=== PATIENT | female | born 1935 | race Caucasian/White ===

== ENCOUNTER 2016-10-10 11:13 | Observation (INO) | payer MEDICARE ==
[~2016-10-10] VITALS: Ht 142.2 cm; Wt 42.7 kg
[~2016-10-10 11:13] MED LIST: ACET-2766 PO; AMIO200T PO; CHOL10008 PO; CIPR-231 PO; HYDR-4003 PO; HYDR25TA4 PO; LEVO50TA6 PO; WARF1TAB6 PO
[2016-10-10 11:24] VITALS: BP 180/86; PULSE 81; RESP 20; O2SAT 98
--- NOTE | 2016-10-10 11:27 | ED.REPORT ---
HPI-Extremity Problem Lower Date of Service Oct 10, 2016 ED Provider: Samuel Roy MD 81 year old female with a recent admission June 29 through July 07 for a left hip fracture surgical repair by Dr. Whitney, who presents to the ED via EMS due to acute L hip pain that has been worsening over the last 2 days. Pt denies any new fall or injury. Today the patient's leg "gave out", and her remote encoding center manager was able to catch her so she didn't fall. In the last 2 days she has been able to walk with her walker with pain. She only has pain with movement of the leg. She denies any other pain or injury. Pain is minimally relieved with Tylenol. Pt denies fever, numbness, tingling and any acute change in edema. Her last PO was 0800. Pt is on Coumadin for Afib. Nursing Notes Stated Complaint: LEFT LEG PAIN Chief Complaint: Extremity Trauma Nursing Notes Reviewed: Yes (Productify, meds not reconciled, on warfarin) Allergies: Coded Allergies: diltiazem (Verified Allergy, Intermediate, Rash, 06/29/16) furosemide (Verified Allergy, Mild, Rash, 10/10/16) Contrast Media (Verified Allergy, Unknown, Hives, 10/10/16) Scheduled Amiodarone (Amiodarone) 200 Mg Tablet 200 MG PO QAM Ascorbic Acid (Vitamin C) 100 Mg Tablet Unknown Dose PO DAILY Cholecalciferol (Vitamin D3) (Vitamin D3) 1,000 Unit Tab.chew 1,000 UNIT PO DAILY Hydrochlorothiazide (Hydrochlorothiazide) 25 Mg Tablet 25 MG PO QAM Levothyroxine (Levothyroxine) 75 Mcg Tablet 75 MCG PO DAILY Warfarin Sodium (Warfarin Sodium) 1 Mg Tablet 1.5 MG PO ,Mon,,Sat,Philip Warfarin Sodium (Warfarin Sodium) 1 Mg Tablet 1 MG PO Mon,Fri Scheduled PRN Acetaminophen (Tylenol Arthritis) 650 Mg Tablet.er 650 MG PO HS PRN PRN For Pain General Time Seen by MD: 11:24 Chief Complaint Other (L leg pain) Hx Obtained From: Patient, EMS Arrived By: Ambulance Onset Occurred: 2 days ago Symptom Duration: Since onset Location: : Leg left Quality: Painful Severity: Current: No pain currently Severity: Maximum: Moderate Associated with: Denies: Fever, Unable to walk Exacerbated by: Movement Recent Healthcare: Recent doctor visit, Previous surgery Similar Sx Previous: Yes Past Medical History 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 Linares Primary: Dr. Dos Santos Admit June 29 through July 07 for a left fracture surgical repair by Dr. Whitney, as well as campylobacter diarrhea Past Medical History Hx of endometrial cancer History of a flutter/fibrillation on warfarin History of patent ductus arteriosus with severe heart murmur Reports: Congestive heart failure, Hypertension Reports: Atrial fibrillation Past Surgical History L hip intramedullary nailing 07/02/[address] Whitney Reports: Appendectomy, Hysterectomy Reports: Knee replacement Family History Noncontributory Smoking History Never Smoker Social History Alcohol Use: 1-3 per day Drug Use: Denies drug use Other Social History: Local resident Ambulatory Status Independent Review of Systems Basic Review of Systems Eyes: Vision NL ENT: Hearing NL Respiratory: No shortness of breath Cardiovascular: No chest pain GI: No abdominal pain Psychiatric: Normal thought content Constitutional: Denies: Chills, Fever Musculoskeletal: Reports: Extremity pain, Extremity swelling (chronic lower extremity edema) Skin: Denies Diaphoresis, Denies Rash Neurologic: Denies: Numbness, Weakness Complete sys rev & neg: except as marked. Physical Exam Initial Vital Signs Vital Signs (First) Date Time Temp Pulse Resp B/P Pulse Ox O2 Delivery O2 Flow Rate FiO2 10/10/16 11:24 36.4 81 20 180/86 98 Room Air Initial VS: Reviewed, Vital signs normal General/Constitutional: Well-developed (No visible signs of trauma), Well- nourished Head / Eyes: Atraumatic (No signs of trauma), Normocephalic, PERRL ENT: Conjunctiva normal, No scleral icterus Neck: Supple, Full range of motion Respiratory: Breath sounds normal, Clear to auscultation, No respiratory distress Abdomen / GI: Soft, Non-tender Skin: Warm, Dry, No cyanosis Neurologic: Alert, Oriented, Nonfocal Psychiatric: Behavior normal, Normal thought content Lower Extremity / Pelvis / MS: Neurologic intact, Vascular intact Pain with gentle internal, external rotation. +2 swelling and edema to bilat legs which she reports has been there for 30 years. N/ plantarflexion and dorsiflexion. No deformity or effusion of knee, I suspect the hip is the source. No tension in calf. Nl pulses. Heart Sounds / Murmur: Positive: Murmur present... (I/) Interpretation & Diagnostics Lab Results Interpretation Result Diagram: 10/10/16 1219 10/10/16 1219 Test 10/10/16 12:19 White Blood Count 6.8th/mm3 (3.8-10.1) Red Blood Count 3.47mil/mm3 (3.90-5.20) Hemoglobin 10.9g/dL (12.0-15.6) Hematocrit 33.8% (35.0-46.0) Mean Corpuscular Volume 97.4fL (81-100) Mean Corpuscular Hemoglobin 31.4pg (27.0-35.0) Mean Corpuscular Hemoglobin Concent 32.2% (32.0-37.0) Red Cell Distribution Width 12.1% (12.3-15.4) Platelet Count 205bil/L (150-400) Neutrophils (%) (Auto) 79.0% (40-74) Lymphocytes (%) (Auto) 9.0% (14-46) Monocytes (%) (Auto) 9.7% (4-12) Eosinophils (%) (Auto) 2.1% (0-5) Basophils (%) (Auto) 0.1% (0-3) Prothrombin Time 16.0sec (8.1-12.5) Prothromb Time International Ratio 1.48ratio Sodium Level 141mEq/L (134-144) Potassium Level 4.6mEq/L (3.5-5.2) Chloride Level 103mEq/L (97-108) Carbon Dioxide Level 23mmol/L (18-29) Blood Urea Nitrogen 37mg/dL (8-27) Creatinine 1.84mg/dL (0.57-1.00) Estimat Glomerular Filtration Rate 38mL/min (>59) Glucose Level 96mg/dL (60-99) Calcium Level 8.9mg/dL (8.5-10.1) Total Bilirubin 0.5mg/dL (0.0-1.2) Aspartate Amino Transf (AST/SGOT) 17U/L (0-50) Alanine Aminotransferase (ALT/SGPT) 8U/L (0-32) Alkaline Phosphatase 105U/L (25-165) Total Creatine Kinase 86U/L (21-215) Total Protein 6.5g/dL (6.4-8.4) Albumin 3.7g/dL (3.4-5.0) Lab Results Interpretation: CBC normal CMP mild renal sufficiency X-Ray Interpretation Xray Interpretation: IMPRESSION: 1. Stable post surgical changes related to open reduction and internal fixation of left femoral neck fracture. 2. Left suprapubic ramal fracture. 3. Osteopenia. Dictated by: Colton Dorado M.D. on 10/10/2016 at 12:49 X-Ray Ordered: Pelvis, Hip left Interpretation / Wet Read by: Interpret - Radiologist Xray Interpretation: IMPRESSION: Stable postsurgical changes with open reduction and internal fixation of left femoral neck fracture. Dictated by: Colton Dorado M.D. on 10/10/2016 at 12:45 X-Ray Ordered: Femur left Interpretation / Wet Read by: Interpret - Radiologist Re-Eval/Medical Decision Med Decision/Clinical Course This is a pleasant 81-year-old female who fell and broke her hip in June, and underwent surgical repair on July 02. She reports been doing okay, and denies any trauma-but was doing physical therapy on Monday 2 days ago she suddenlyy felt a pain in her left hip and leg. Since then she has been unable to bear weight even with her walker. She only denies any falls. She denies swelling, she denies fevers chills redness. She is on warfarin. On exam she reports she is in no discomfort also she does not move. However she does have pain with just even gentle internal and external rotation of the hip. There is no shortening or overt signs of definitive fracture. Just some mild diffuse tenderness of the other leg. There is no effusion or visible signs of trauma the knee. He is neurovascularly intact. There is no gross hematoma, no signs of compartment syndrome. The patient's subtherapeutic. Plain radiographs are negative definitive injury , but the radiologist in case he may be a pubic rami fracture that is not described previously. The PACs in ED is down at the time she has been seen and I am not able to personally reviewed the films. However given the patient's age anticoagulated status fall risk inability to bear weight she is being admitted for pain control and further evaluation. A consultation was requested of Dr. cardoso the orthopedist on-call and he was the previous surgery. He is requested CT imaging which was performed, but no definite fracture seen. Source of Hx: Old records Re-Evaluation/Progress : Time of Eval: 13:21 Re-Evaluation/Progress Note: pt confirms no recent falls. Recommended admission due to inability to walk. Pt understands and agrees with plan. All questions addressed. Consultation #1: Referral / Consult Name: Mariusz Whitney DO Consulted With: Orthopedic Call Returned at: 13:53 Cds Sales Advisor: Will see patient Note: Requested CT. Consultation #2: Referral / Consult Name: Artie Cline MD Consulted With: Hospitalist Call Returned at: 13:57 Cds Sales Advisor: Will see patient, Agrees with eval, Agrees with plan, Accepts admit Differential Diagnosis: Negative: Abscess, Cellulitis, Compartment syndrome, Femur fracture, Greater trochant fracture, Guillain-C[place]oct[place] syndrome, Hematoma, Hip dislocation ant, Hip dislocation post, Hip effusion, Venous thromboembolism Counseled Regarding: Diagnosis, Lab results, Need for admission Discharge & Departure Impression: Primary Impression: Left hip pain Additional Impressions: Pubic ramus fracture Encounter type: initial encounter Fracture type: closed Laterality: left Qualified Code: S32.502A - Unspecified fracture of left pubis, initial encounter for closed fracture Subtherapeutic international normalized ratio (INR) Disposition: ADMITTED TO HOSPITAL Discharge Condition All VS Reviewed: Yes Referrals: Blaine Dos Santos MD (PCP) Scribe Attestation Portions of this note were transcribed by Erinn Hargrove. I, (Dr. Roy) personally performed the history, physical exam and medical decision-making; I reviewed and confirmed the accuracy of the information in the transcribed note. Signed by: Erinn Hargrove. 10/10/2016, [id number] copies to: Blaine Dos Santos MD, Matthew F MD Oct 10, 2016 11:27 Erinn Hargrove Oct 10, 2016 11:53
[2016-10-10] MEDS ORDERED: Ondansetron 2 mg/mL 2 mL Inj IVPUSH ONE (11:45)
[2016-10-10] MEDS ORDERED: HYDROmorphone 0.5 mg/0.5 mL iSecure Syringe IVPUSH PRN (11:45)
[2016-10-10 12:29] LABS: BASOPHILS % (AUTO) 0.1 % (0-3); EOSINOPHILS % (AUTO) 2.1 % (0-5); MONOCYTES % (AUTO) 9.7 % (4-12); Mean Corpuscular Hemoglobin 31.4 pg (27.0-35.0); Mean Corpuscular Volume 97.4 fL (81-100); Platelet Count 205 bil/L (150-400)
[2016-10-10 12:40] LABS: INR 1.48 ratio
--- NOTE | 2016-10-10 12:47 | DRSVH ---
PROCEDURE: X-RAY LEFT FEMUR, TWO VIEWS ([id number]) INDICATIONS: Pain TECHNIQUE: 2 views of the femur were acquired. COMPARISON: [facility], CR, XR HIP 2VW LT, 07/02/2016, 13:50. [facility], CR, XR PELVIS W LATERAL HIP LT, 09/14/2016, 9:23. [facility], CR, XR PELVIS W LATERAL HI P LT, 10/10/2016, 11:49. [facility], CR, XR FEMUR 2VW LT, 09/14/2016, 9:23. FINDINGS: Bones: Open reduction and internal fixation of left femoral neck fracture. Post surgical changes are stable. Small knee joint effusion. No suspicious bony lesions. There is osteopenia. Soft tissues: No suspicious soft tissue calcifications or masses. IMPRESSION: Stable postsurgical changes with open reduction and internal fixation of left femoral nec k fracture. Dictated by: Colton Dorado M.D. on 10/10/2016 at 12:45 Approved by: Colton Dorado M.D. on 10/10/2016 at 12:45
--- NOTE | 2016-10-10 12:51 | DRSVH ---
PROCEDURE: X-RAY PELVIS W/LAT HIP (LT) ([id number]) INDICATIONS: pain TECHNIQUE: AP pelvis with lateral view(s) of the left hip(s). COMPARISON: [facility], CR, XR PELVIS W LATERAL HIP LT, 06/29/2016, 12:53. [facility], CR, XR FEMUR 2VW LT, 06/29/2016, 13:58. [facility], CR, XR HIP 2VW LT, 016, 13:50. [facility], CR, XR PELVIS W LATERAL HIP LT, 09/14/2016, 9:23. FINDINGS: Bones: Open reduction and internal fixation of left femoral neck fracture with an intramedullary ashley and a dynamic compression screw. Alignment is unchanged. There is a left superior pubic ramal fractur e. Generalized osteopenia is noted. There is degenerative changes in lower lumbar spine. Soft tissues: The visualized bowel gas pattern is normal. No suspicious soft tissue calcifications. IMPRESSION: 1. Stable post surgical changes related to open reduction and internal fixation of left femoral neck fracture. 2. Left suprapubic ramal fracture. 3. Osteopenia. Dictated by: Colton Dorado M.D. on 10/10/2016 at 12:49 Approved by: Colton Dorado M.D. on 10/10/2016 at 12:49
[2016-10-10] MEDS ORDERED: WARF1TAB6 PO (13:45)
[2016-10-10] MEDS ORDERED: ASCO100T11 PO (13:46)
[2016-10-10] MEDS ORDERED: LEVO75TA4 PO (13:54)
[2016-10-10 14:49] VITALS: BP 167/48; PULSE 71; RESP 20; O2SAT 96
--- NOTE | 2016-10-10 14:59 | PCM.HPMED ---
Subjective Date of Service Oct 10, 2016 Primary Provider: Admitting Physician: Primary Care Physician: Blaine Dos Santos MD Attending Physician: History of Present Illness: 80yo F w/ CKD, HTN, afib on AC, amiodarone, hx of endometrial CA, Lt IT fx s/p fall, s/p ORIF 07/02/2016 p/w lt hip pain. Patient stated that since last time she was hospitalized for his fracture surgery, patient has received home physical therapy, participating very well. Patient was able to ambulating with walker. However, this morning patient finished her shower, custom home installer was helping her drying while she was standing, suddenly he was not able to stand with severe pain on her hip, so patient was about to fall, likely custom home installer was able to catch her. Patient denied any recent trauma, doing really well. Patient denied fever, chills, cough, sputum, diarrhea, nausea, vomiting, chest pain, palpitation, dizziness. In ED, VS [id number], 81, RR20, afebrile, 98% on RA, femurs xray shows stable postsurgical changes on lt hip. pelvic xray shows Left suprapubic ramal fracture , therefore was called, recommended CT scan. During interview, pt denied any hip pain, able to move her toes, denied tingling numbness on the left leg. Review of Systems: Pertinent positives as noted in history of present illness. All other systems were reviewed and are negative Allergies Coded Allergies: diltiazem (Verified Allergy, Intermediate, Rash, 06/29/16) furosemide (Verified Allergy, Mild, Rash, 10/10/16) Contrast Media (Verified Allergy, Unknown, Hives, 10/10/16) Home Medications From last d/c summary Discharge Medications Amiodarone (Amiodarone) 200 Mg Tablet 200 MG PO QAM (Reported) Cholecalciferol (Vitamin D3) (Vitamin D3) 1,000 Unit Tab.chew 1,000 UNIT PO DAILY (Reported) Ciprofloxacin (Cipro) 500 Mg Tablet 500 MG PO BID Prescribed by: AVRIL ACEVEDO MD Hydrochlorothiazide (Hydrochlorothiazide) 25 Mg Tablet 25 MG PO QAM (Reported) Levothyroxine (Levothyroxine) 50 Mcg Tablet 50 MCG PO DAILY (Reported) Warfarin Sodium (Warfarin Sodium) 1 Mg Tablet 1.5 MG PO DAILY (Reported) As needed Acetaminophen (Tylenol Arthritis) 650 Mg Tablet.er 650 MG PO DAILY PRN PRN For Pain (Reported) Hydrocodone-Acetaminophen 5-325 mg (Hydrocodone-Acetaminophen 5-325 mg) 1 Each Tablet 1-2 TABLET PO Q4H PRN PRN For Moderate Pain Prescribed by: AVRIL ACEVEDO MD [facility] last hospitalization in for Lt IT fx s/p fall, s/p ORIF 07/02/2016 fall thought be likely ultifactorial: Postural with dehydration, hospital course c/b #.diarrhea due to Campylobacter # episode of acute dyspnea due to aspiration pneumonia #.SUSAN on CKD, likely from bactrim # Transaminitis most likely from bactrim #.cellulitis, subacute # recent traumatic cerumen disimpaction resulted bleeding, chronic conditions #.HTN, #hypothyroidism #afib Surgical History Surgical History Endometrial cancer s/p hysterectomy 40 years ago Appendectomy > 20 years ago Right knee replacement Family History No famhx of IBD, colorectal cancer, or hepatic disease. Social History Hx Alcohol Use: Yes Alcoholic Drinks Per Day: 1-2 drinks with dinner ("scotch malt" or wine) every day Hx Substance Use: No Hx Tobacco Use: No Smoking Status: Never Smoker Additional Information Life-long [place] resident, lives locally. Social History Hx Alcohol Use: Yes Hx Substance Use: No Hx Tobacco Use: No Smoking Status: Never Smoker Exam Vital Signs Vital Sign - Last Date Time Temp Pulse Resp B/P Pulse Ox O2 Delivery O2 Flow Rate FiO2 10/10/16 11:24 36.4 81 20 180/86 98 Room Air Exam Elderly female, comfortably laying down on the bed no JVD, MMM, no LAD RRR, nl s1, s2 no mrg CTAB, no w,c S,ND,NT,normoactive BS+ warm, no edema, pulses 2/2 Motor: Unable to flex lt hip due to pain, sensory intact distally Lab and Diagnostics Result Diagram: 10/10/16 1219 10/10/16 1219 Assessment & Plan 80yo F w/ CKD, HTN, afib on AC, amiodarone, hx of endometrial CA, Lt IT fx s/p fall, s/p ORIF 07/02/2016 p/w lt hip pain, found to have atraumatic pelvic fx. acute, active #Lt hip pain, POA, secondary to pubic ramus fx, no hx of trauma, pt is on VitD3 , presumably related to osteoporosis -appreciate input, keep nonwt bearing, although unlikely require surgical intervention. -will check vitD level, -pain control with percocet prn -will start PT/OT once cleared from Ortho stand point chronic, stable #HTN, continue HCTZ #hypothyroidism, continue LT4 home dose, #afib, rate controlled, INR subtx range, hold coumadin 2.5 qd until cleared from Ortho, continue amiodarone, get EKG as routine. dvt ppx:systemic AC, LMWH until INR >2 diet: cardiac Full Code dispo: Patient is admitted under observation status with expectation that she will be discharged within 24-48 hours, Time spent 65min Artie Cline MD Oct 10, 2016 14:50
--- NOTE | 2016-10-10 15:32 | DRSVH ---
PROCEDURE: CT PELVIS WITHOUT CONTRAST ([id number]) INDICATIONS: L hip pain TECHNIQUE: Noncontrast 3 mm axial sections acquired through the bony pelvis, with coronal and sagittal reformatt ing. COMPARISON: [facility], CT, PELVIS W/O CONTRAST, 06/23/2014, 8:28. FINDINGS: Image quality: Suboptimal due to diffuse osteopenia. Bones: There is severe diffuse osteopenia which limits study sensitivity. No definite fracture or foc al osseous destruction is seen. Alek and dynamic hip screw in the proximal left femur. Degenerative ch anges at the pubis symphysis, sacroiliac joints and moderate bilateral hip degeneration. Diffuse disc ogenic changes in the visualized lower lumbar spine. Soft tissues: Diffuse muscle atrophy otherwise soft tissues grossly unremarkable. IMPRESSION: Diffuse degenerative changes as above and severe osteopenia, which limits study sensitivity. If there is persistent clinical concern and the patient's symptoms do not improve, noncontrast MRI of the pel vis could be performed for further assessment. Dictated by: Kenji Franco M.D. on 10/10/2016 at 15:30 Approved by: Kenji Franco M.D. on 10/10/2016 at 15:30
[2016-10-10 16:30] VITALS: BP 182/66; PULSE 74; RESP 20; O2SAT 95
--- NOTE | 2016-10-10 17:46 | NUR ---
admit patient arrived to room 1022 at 1620. oriented to room and call light and states understanding. denies pain and denies pain medication. voided x 1 per bedpan. patient took all of home medications this morning at home. scd's placed. patient tolerating dinner with no problems. heels lifted with pillow. turn q2 explained and discussed with patient. will give report to oncoming rn at 1900.
[2016-10-10 20:01] VITALS: BP 159/62; PULSE 68; RESP 18; O2SAT 96
--- NOTE | 2016-10-10 20:34 | NUR ---
Case Management: Observation Brochure provided and explained to patient at 2005. Pt is alert and oriented all questions answered. Kourtney Her RN
[2016-10-10] MEDS: HYDROcodone-APAP 5-325 mg Tablet PO PRN (20:55)
[2016-10-11] VITALS (9 sets, daily range): BP systolic 126–188; BP diastolic 48–76; PULSE 53–88; RESP 16–28; O2SAT 92–99
[2016-10-11] MEDS: HYDROcodone-APAP 5-325 mg Tablet PO PRN ×2 (02:30→09:16)
--- NOTE | 2016-10-11 05:21 | NUR ---
Observation Pain managed with norco this shift, reported as a spasm feeling and repositioning provided relief as well. Pt tolerates repositioning Q2 and use of bedpan. Coumadin on hold per ortho orders. Bilateral edema noted, pt states it has been baseline for 30 years, SCDs in place and heels floated. CSM intact, AOx4. No SOB or chest pain. Will continue to monitor
--- NOTE | 2016-10-11 11:09 | NUR ---
Evaluation completed. Please go to "Notes" then click on "Assessments and Notes" (bottom left corner of screen). Then select appropriate discipline tab on top of screen.
--- NOTE | 2016-10-11 14:53 | NUR ---
Social Work Initial Assessment D: EMR reviewed. See initial assessment. Pt is an 81Y old female Frank for Left Hip Pain/Pubic Ramus Fracture. Insurance is Medicare and AARP Supplement. PCP is Dr. Dos Santos. Readmission score is 4/8-High. SW met with Pt at bedside, SW role explained. Pt lives home alone in [place]. Pt uses a 4WW and cane at baseline. Pt also has a bath bench and bath bars. Pt receives meals from [employer] and also has a nursing scheduler. Pt is open with [facility], RN/PT/CALENDER FEEDER. Dr. Whitney is following Pt and has given toe touch wt bearing precautions for Pt. PT=SNF. SW explained to Pt options for d/c of home with HH and family/caregiver support or Private Pay SNF. Pt indicated she has limited funds for SNF but does have a CC. Pt agreeable to referral to [facility]. Pt will discuss with her son this evening the d/c plan and SW will follow up with Pt in the morning as she will likely d/c tomorrow. Pt reports Dr. Whitney met with Pt and indicated a plan to consult with the other orthopedists and discuss plan to possibly include hip replacement at the end of the this week. There are no updated notes at the time of this writing to indicate this. SW will continue to work with Pt and family on safe discharge. SW spoke with Kanu at [facility] and updated Pt in hospital. Access Given. SW provided referral to Jennifer Key at [facility]. Pt is accepted pending bed being open with a rate of $400 dollars per day. Pt unable to afford other SNF facilities due to the requirement of payment upfront a month in advance. SW following A: Pt previously open with , PT=SNF but would be private pay P: SW will continue to work with Pt and family on safe discharge. PHOEBE spoke with Kanu at [facility] and updated Pt in hospital. Access Given. PHOEBE provided referral to Jennifer Key at [facility]. Pt is accepted pending bed being open with a rate of $400 dollars per day. Pt unable to afford other SNF facilities due to the requirement of payment upfront a month in advance. Pt anticipates Pt to either discharge home with home health or SNF private pay. SW following. Diann Sb, DUST COLLECTOR ATTENDANT Addendum: 10/11/16 at 1506 by DIANN LEONARD Amended: Links added.
--- NOTE | 2016-10-11 16:29 | PCM.PHAPRO ---
Progress Warfarin Management by Pharmacy: -Indication: afib -Home Dose: 1mg on Mo,Fr and 1.5mg AOD -Inr Goal: 2-3 -Inr on admit (10/10) was 1.48 -Drug Interaction: home dose of PO Amiodarone -Plan: will await the results of the inr just ordered before initiating home dose. serial inr's have been ordered. Polina Iverson [facility] Oct 11, 2016 16:29
[2016-10-11 17:00] LABS: INR 1.47 ratio
--- NOTE | 2016-10-11 17:26 | PCM.PNMED ---
Subjective Date of Service Oct 11, 2016 Subjective Pt seen and examined. Patients pain is being controlled. Exam Vital Signs Vital Sign - Last Date Time Temp Pulse Resp B/P Pulse Ox O2 Delivery O2 Flow Rate FiO2 10/11/16 17:15 36.8 75 16 177/70 92 Room Air Intake and Output 10/10/16 10/10/16 10/11/16 Cumulative From/Thru 15:00 23:00 07:00 10/10/16 11:24 - 10/11/16 06:43 Intake Total 100 ml 100 ml Output Total 100 ml 550 ml 650 ml Balance -100 ml -450 ml -550 ml Intake Oral 100 ml 100 ml Output Urine Total 100 ml 550 ml 650 ml # Bowel Movements 0 0 Lab and Diagnostics Result Diagram: 10/10/16 1219 10/10/16 1219 Assessment & Plan 80yo F w/ CKD, HTN, afib on AC, amiodarone, hx of endometrial CA, Lt IT fx s/p fall, s/p ORIF 07/02/2016 p/w lt hip pain, found to have atraumatic pelvic fx. acute, active #Lt hip pain, POA, secondary to pubic ramus fx, no hx of trauma, pt is on VitD3 , presumably related to osteoporosis -appreciate input, keep nonwt bearing, although unlikely require surgical intervention. -will check vitD level, -pain control with percocet prn -will start PT/OT once cleared from Ortho stand point chronic, stable #HTN, continue HCTZ #hypothyroidism, continue LT4 home dose, #afib, rate controlled, INR subtx range, hold coumadin 2.5 qd until cleared from Ortho, continue amiodarone, get EKG as routine. dvt ppx:systemic AC, LMWH until INR >2 diet: cardiac Full Code dispo: Patient is admitted under observation status with expectation that she will be discharged within 24-48 hours, VTE Mechanical Devices: Intermittant Pneumatic CD Layo Lee MD Oct 11, 2016 17:26
--- NOTE | 2016-10-11 18:10 | NUR ---
ACTIVITY Denies pain at this time. Hydrocodone 1 tab PO has been effective for pain control. Tolerating liquids PO and her diet well. Denies nausea. No emesis noted. Denies SOB. Voiding without any problems. She has been using her call light appropriately. Does not attempt to get OOB on her own.
--- NOTE | 2016-10-11 20:33 | CONS ---
[address] [address] CONSULTATION REPORT PATIENT: LYNSEY NORTH : 1935 MR#: [id number] ADMIT: 10/10/2016 JOB ID: [id number] DATE OF SERVICE: 10/11/2016 CHIEF COMPLAINT: Left hip pain. HISTORY OF PRESENT ILLNESS: The patient is an 81-year-old female who underwent a left hip intramedullary nail with myself July 02. She was doing well but began having left hip pain at home and progressively worsened to the point where she was unable to bear weight or ambulate on the left hip and she came into the emergency department. The pain worsended while she was taking a shower. Her hip became acutely worse on the day of admission. She did not have any trauma or fall. She denies any fevers, chills, chest pain, nausea, vomiting, or other constitutional symptoms. PAST MEDICAL HISTORY: Significant for hypertension, hypothyroidism, atrial fibrillation. PAST SURGICAL HISTORY: Right total knee arthroplasty, left hip nailing. PHYSICAL EXAMINATION: Blood pressure 158/58, pulse rate 69, respirations 16, temperature 36.7. She is alert and cooperative in no acute distress. Her left hip surgical incisions are well healed. There is no redness or erythema. She has limited range of motion in the hip with only about 0 degrees of internal and 20 degrees of external rotation possible. She can be flexed to 90 degrees without pain. Both feet are warm, pink and well perfused. She has no calf pain or tenderness. LABORATORY EVALUATION: White blood cell count is normal at 6.8. INR 1.48. X-rays and CT scan were reviewed and also reviewed with radiologist. I do not see any pelvic fracture evident. However, I do believe she has a nonunion of her left intertrochanteric hip fracture based on her CT scan. 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 PLAN: I would like the patient remain toe-touch weightbearing on the left lower extremity for a period of six weeks. I would also like to get her an Exogen bone stimulator to use to help promote healing of this nonunion and have her follow up in the office for recheck in two weeks and then again at six weeks from now. I would also like the patient to get home health to assist her with her activities of daily living and assist her with ambulation. If the fracture nonunion continues to be a problem and does not heal or resolve, we discussed that we could convert her to a total hip arthroplasty or hip hemiarthroplasty with removal of the nail, however, I am reticent to perform this as this would be a fairly significant operation with significant blood loss and risk to the patient. MUNA
--- NOTE | 2016-10-11 20:58 | NUR ---
SOB Pt complaints of SOB: BP 188/76, SaO2 92 on 3Lnc. Coarse LS w/ crackles throughout, Wheezes L lung primarily anterior. Edema in BLE is decreased in ankles from 3+ pitting to 2+ (impressions of SCD in legs), BL feet indicate2-3+ pitting remaining. Orders recieved: Per Garima Elizondo. Lasix 40mg IV one time dose now. Q2h PRN Albuterol nebulizer. STAT chest Xray, call with results Pt sitting at bedside with legs dangling, O2 via NC, pt states SOB decreasing. Pt complains of pain only when repositioning. Will call with results, continue monitoring resp this shift Addendum: 10/11/16 at 2254 by LILIBETH CORCORAN RN Notified of CXR results- probable PNA, IV ABX on order. Furosemide allergy, notified and med held. Pt states SOB relief after nebulizer tx.
--- NOTE | 2016-10-11 21:17 | DRSVH ---
PROCEDURE: X-RAY CHEST ONE VIEW, PORTABLE ([id number]) INDICATIONS: short of breath coarse lung sounds TECHNIQUE: One view of the chest was acquired. COMPARISON: [facility], CR, XR CHEST 1VW (PORTABLE), 07/02/2016, 8:47. FINDINGS: Surgical changes and devices: None. Lungs and pleura: No r pneumothorax. There is abnormal density at the right lung base. This may well be pneumonia.. However lizeth are prominent and indistinct Pulmonary vasculature is prominent. The miriam earance could be asymmetric pulmonary edema. Mediastinum: Mediastinal contours appear normal. Heart size is enlarged Bones and chest wall: No suspicious bony lesions. Overlying soft tissues appear unremarkable. IMPRESSION: Large heart with either right lower lobe pneumonia or some asymmetric pulmonary edema. Dictated by: Ambrosio Garcia M.D. on 10/11/2016 at 21:15 Approved by: Ambrosio Garcia M.D. on 10/11/2016 at 21:15
[2016-10-11] MEDS ORDERED: Furosemide 10 mg/mL 4 mL Inj IVPUSH ONE (21:50)
[2016-10-11] MEDS ORDERED: Albuterol 2.5 mg/3 mL Inhalation Solution NEB PRN (21:50)
[2016-10-11] MEDS ORDERED: Piperacillin-Tazo 3.375 Gm Inj 3.375 GM in Dextrose 5% Minibag Plus 50 ML IV ONE (22:30)
[2016-10-12 00:16] VITALS: BP 153/68; PULSE 74; RESP 24; O2SAT 98
[2016-10-12 04:50] VITALS: BP 124/58; PULSE 70; RESP 22; O2SAT 100
[2016-10-12 06:46] LABS: INR 1.51 ratio
--- NOTE | 2016-10-12 08:00 | PCM.PHAPRO ---
Progress Warfarin Management by Pharmacy: -Indication: afib -Home Dose: 1mg on Mo,Fr and 1.5mg AOD -Inr Goal: 2-3 -Inr on admit (10/10) was 1.48 -Drug Interaction: home dose of PO Amiodarone -Plan: Coag Trends: 10/10 Inr 1.48 10/11 Inr 1.47 warfarin 1.5mg 10/12 Inr 1.51 will continue this evening with home dose of warfarin 1.5mg Polina Iverson [facility] Oct 12, 2016 08:00
[2016-10-12 08:41] VITALS: BP 147/57; PULSE 70; RESP 22; O2SAT 99
--- NOTE | 2016-10-12 09:24 | DRSVH ---
PROCEDURE: US VEINOUS LEG DUPLEX UNILATERAL, LEFT INDICATIONS: left leg swelling TECHNIQUE: Real-time imaging, as well as color and pulse Doppler interrogation, were performed of the lower extr emity deep veins from the inguinal ligament to the popliteal fossa. COMPARISON: None. FINDINGS: The deep veins are normally compressible, and free of intraluminal thrombus. Color and pu lse Doppler demonstrate normal phasic intraluminal flow. There is normal augmentation response to di stal compression maneuver. IMPRESSION: No evidence of deep vein thrombosis involving the left lower extremity. Dictated by: Bailey Harry MD, PhD on 10/12/2016 at 9:22 Approved by: Bailey Harry MD, PhD on 10/12/2016 at 9:22
--- NOTE | 2016-10-12 11:53 | NUR ---
Called [facility] to check patient's discharge date. Her stay was from 07/07/16-08/04/16 Patient does not have qualifying stay in the last 30 days and she has now missed her 30 day window to return to SNF. Updated NOC TECHNICIAN and UR RN
[2016-10-12] MEDS ORDERED: Piper-Tazo 3.375 Gm/50 mL D5W Minibag Plus - Q8H over 4 hrs IV SCH ×2 (12:00)
--- NOTE | 2016-10-12 14:03 | NUR ---
Mobility/Resp Patient with pain upon movement but none at rest. Pt using bedpan as to hurtful to get to bsc. Pt is not ambulatory at this time and not able to do own cbl's. Pt remains on 02-2l lung sounds coarse with scattered crackles in bases.
[2016-10-12 14:41] VITALS: BP 128/47; PULSE 64; RESP 16; O2SAT 100
--- NOTE | 2016-10-12 15:44 | NUR ---
Social Work Continued Discharge Planning: SW spoke to patient son Vincent, to discuss discharge plan. Patient son state that patient resides home alone and has no additional family support and care. Patient son is the only child and he is unable to assist with patient care needs. Patient current with [facility] for HHC services. Referral sent previously to [facility] which can accept patient under private pay. Patient son states that he has no available funds to pay privately for care services. Patient son also states that he has no available funds to cover expense for C private pay. Therapy notes reflect inabilities for ambulation. SW encouraged patient son to contact [facility], . Patient son spoke to rep Van who has scheduled and visit with son tomorrow morning for possible care services. Patient not meeting SNF criteria under previous admit. SW contacted and left message for [facility] to determine Medicaid eligibility for Medicaid SNF bed. SW completed and faxed [facility] referral for further care and assistance. SW to follow up tomorrow to determine if son able to pay expense for private duty caregiving services in addition to HHC services with [facility]. Access provided to [facility] previously. [facility] rep Kanu aware. SW to follow. Possible home with resumption of HHC services via [facility] and private duty via [facility] (assessment with son tomorrow morning). New [facility] referral sent. No available funds for private pay SNF at [facility]. Arnaldo IRIZARRY
--- NOTE | 2016-10-12 17:51 | PCM.PNMED ---
Subjective Date of Service Oct 12, 2016 Subjective Pt seen and examined. Patient last night had an episode of shortness of breath last night. Patient was seen to have questionable pneumonia or atelectasis. Exam Vital Signs Vital Sign - Last Date Time Temp Pulse Resp B/P Pulse Ox O2 Delivery O2 Flow Rate FiO2 10/12/16 14:41 36.6 64 16 128/47 100 Nasal Cannula 2.00 Intake and Output 10/11/16 10/11/16 10/12/16 Cumulative From/Thru 15:00 23:00 07:00 10/10/16 11:24 - 10/12/16 06:47 Intake Total 822 ml 160 ml 1082 ml Output Total 400 ml 250 ml 1300 ml Balance 422 ml -90 ml -218 ml Intake Oral 822 ml 100 ml 1022 ml IV Total 60 ml 60 ml Output Urine Total 400 ml 250 ml 1300 ml # Bowel Movements 0 1 1 Exam General: Generally well appearing, HEENT: sclerae anicteric, oral mucosa moist Neck: no apparent JVD Chest: clear to auscultation Cardiac: S1S2, no murmur Abdomen: BS active, non-tender, not bloated or tympanitic Extremities: No edema Neuro: A&O, cranial nerves symmetric, motor strength and coordination normal Lab and Diagnostics Result Diagram: 10/10/16 1219 10/10/16 1219 Assessment & Plan 80yo F w/ CKD, HTN, afib on AC, amiodarone, hx of endometrial CA, Lt IT fx s/p fall, s/p ORIF 07/02/2016 p/w lt hip pain, found to have atraumatic pelvic fx. acute, active #Lt hip pain, POA, secondary to pubic ramus fx, no hx of trauma, pt is on VitD3 , presumably related to osteoporosis -appreciate input, keep nonwt bearing, although unlikely require surgical intervention. -will check vit D level, -pain control with percocet prn -will start PT/OT once cleared from Ortho stand point chronic, stable #HTN, continue HCTZ #hypothyroidism, continue LT4 home dose, #afib, rate controlled, INR subtx range, hold coumadin 2.5 qd until cleared from Ortho, continue amiodarone, get EKG as routine. dvt ppx:systemic AC, LMWH until INR >2 diet: cardiac Full Code dispo: Patient is admitted under observation status with expectation that she will be discharged within 24-48 hours, VTE Mechanical Devices: Intermittant Pneumatic CD Layo Lee MD Oct 12, 2016 17:51
[2016-10-12 19:40] VITALS: BP 127/51; PULSE 72; RESP 22; O2SAT 100
[2016-10-12] MEDS: HYDROcodone-APAP 5-325 mg Tablet PO PRN (20:14)
[2016-10-13 04:10] VITALS: BP 123/61; PULSE 57; RESP 20; O2SAT 98
--- NOTE | 2016-10-13 04:30 | NUR ---
REST Patient resting comfortably, c/o pain earlier this shift, resolved with medication. Denies pain at this time. Bed in low position, wheels locked. Call light within reach, intentional rounding qh.
[2016-10-13 06:18] LABS: INR 1.5 ratio
[2016-10-13 08:45] VITALS: PULSE 75; RESP 18; O2SAT 95
--- NOTE | 2016-10-13 08:47 | PCM.PHAPRO ---
Progress Warfarin Management by Pharmacy: -Indication: afib -Home Dose: 1mg on Mo,Fr and 1.5mg AOD -Inr Goal: 2-3 -Inr on admit (10/10) was 1.48 -Drug Interaction: home dose of PO Amiodarone -Plan: Coag Trends: 10/10 Inr 1.48 10/11 Inr 1.47 warfarin 1.5mg 10/12 Inr 1.51 10/13 Inr 1.5 this will represent 3rd dose of warfarin as an inpt. inr remains subtherapeutic after 2 doses of 1.5mg. will give a one time dose of 2.5mg this evening and follow Polina Iverson [facility] Oct 13, 2016 08:47
[2016-10-13] MEDS: HYDROcodone-APAP 5-325 mg Tablet PO PRN ×2 (09:35→14:04)
--- NOTE | 2016-10-13 11:59 | NUR ---
Social Work Continued Discharge Planning: SW spoke to patient son Vincent, who states that meeting with [facility] took place and family still unable to cover expense for private duty care services. As mentioned previously, patient and son have to other available funds for private duty SNF. Patient son in agreement to continued HHC services via [facility]. Patient current with [facility]. Patient states she to cover expense for transport via [facility]. SW academic assistant to arrange transport for pickle solution maker at 2pm. PHOEBE spoke to attending who was provided with update. MD in agreement. PHOEBE updated [facility] rep Kanu who was made aware and to begin services within 24-48hrs. [facility] referral initiated and family aware. Patient son to check in during the evenings per patient. Patient in agreement to discharge plan. No other needs identified at this time. PLAN: Home with continued HHC services via [facility]. Continued [facility]. supervisor hanging and trimming at 2pm today. Arnaldo IRIZARRY
--- NOTE | 2016-10-13 12:31 | PCM.DIMED ---
Discharge Instructions Date of Service Oct 13, 2016 Dates of Hospitalization Oct 10, 2016 at 15:24 Discharge Diagnosis Discharge Diagnosis fracture of pubic ramis Medication Instructions take medication as prescribed Test Results Patient Name: LYNSEY NORTH MR#: [id number] Location: [facility] [place] Ordering Phys: Samuel Roy MD Date of Service: 10/10/16 1350 PROCEDURE: CT PELVIS WITHOUT CONTRAST ([id number]) INDICATIONS: L hip pain TECHNIQUE: Noncontrast 3 mm axial sections acquired through the bony pelvis, with coronal and sagittal reformatting. COMPARISON: [facility], CT, PELVIS W/O CONTRAST, 06/23/2014, 8:28. FINDINGS: Image quality: Suboptimal due to diffuse osteopenia. Bones: There is severe diffuse osteopenia which limits study sensitivity. No definite fracture or focal osseous destruction is seen. Alek and dynamic hip screw in the proximal left femur. Degenerative changes at the pubis symphysis, sacroiliac joints and moderate bilateral hip degeneration. Diffuse discogenic changes in the visualized lower lumbar spine. Soft tissues: Diffuse muscle atrophy otherwise soft tissues grossly unremarkable. IMPRESSION: Diffuse degenerative changes as above and severe osteopenia, which limits study sensitivity. If there is persistent clinical concern and the patient's symptoms do not improve, noncontrast MRI of the pelvis could be performed for further assessment. Diet No restrictions Activity No restrictions Call your provider Fever or Chills, Shortness of breath, Chest pain, Weakness (unilateral) Patient Instructions Take medications as prescribed No weight bearing on the affected side Obtain bone stimulator Follow-up with PCP in: 1 week Layo Lee MD Oct 13, 2016 12:31
[2016-10-13] MEDS ORDERED: HYDR-4003 PO (12:32)
[2016-10-13] MEDS ORDERED: commode (12:35)
[2016-10-13] MEDS ORDERED: [UNRECOGNIZED DRUG - SUPPLY] AD (12:35)
--- NOTE | 2016-10-13 13:10 | NUR ---
Arranged transport home for patient at 1400 per DAIRY CHEMIST via [facility] transportation. [employer] is available to pay. Updated DAIRY CHEMIST
--- NOTE | 2016-10-13 13:19 | PCM.DIORTH ---
Ortho Discharge Instruction Dates of Hospitalization Date of Hospital Admission Oct 10, 2016 at 15:24 Providers Admitting Physician: Dominique Cline MD Primary Care Physician: Blaine Dos Santos MD Attending Physician: Dominique Cline MD Activity Discharge Activity-General: Try not to overdue Left Lower Extremity: Toe-Touch Weight Bearing Discharge Assist Device: Front Wheeled Walker Additional Instructions Discharge Instructions Continue toe touch weight bearing office will call when bone stimulator available Leigh Haywood PA-C Oct 13, 2016 13:19
--- NOTE | 2016-10-13 15:42 | NUR ---
Discharge Pt discharged to home via transport services. A&Ox3, LESLIE, VSS, Stable of feet with FWW for transfers - unable to fully maintain toe touch to no weight to LLE but doing best - MD aware, No IV access, Hard copy scripts provided pt. Care Notes and Instructions provided on new medication and discharge diagnosis. All pt belongings in hand at al. No unanswered questions or concerns.
--- NOTE | 2016-11-01 14:18 | PCM.DC.MED ---
Discharge Summary Date of Service Nov 01, 2016 Dates of Hospitalization Date of Hospital Admission Oct 10, 2016 at 15:24 Date of Discharge: Oct 13, 2016 Providers: Admitting Physician: Dominique Cline MD Primary Care Physician: Blaine Dos Santos MD Attending Physician: Dominique Cline MD Diagnosis at Time of Discharge Diagnosis at Time of Discharge fracture of pubic ramis Consultations orthopedics [address] [address] CONSULTATION REPORT PATIENT: LYNSEY NORTH : 1935 MR#: [id number] ADMIT: 10/10/2016 JOB ID: [id number] DATE OF SERVICE: 10/11/2016 CHIEF COMPLAINT: Left hip pain. HISTORY OF PRESENT ILLNESS: The patient is an 81-year-old female who underwent a left hip intramedullary nail with myself July 02. She was doing well but began having left hip pain at home and progressively worsened to the point where she was unable to bear weight or ambulate on the left hip and she came into the emergency department. The pain worsended while she was taking a shower. Her hip became acutely worse on the day of admission. She did not have any trauma or fall. She denies any fevers, chills, chest pain, nausea, vomiting, or other constitutional symptoms. PAST MEDICAL HISTORY: Significant for hypertension, hypothyroidism, atrial fibrillation. PAST SURGICAL HISTORY: Right total knee arthroplasty, left hip nailing. PHYSICAL EXAMINATION: Blood pressure 158/58, pulse rate 69, respirations 16, temperature 36.7. She is alert and cooperative in no acute distress. Her left hip surgical incisions are well healed. There is no redness or erythema. She has limited range of motion in the hip with only about 0 degrees of internal and 20 degrees of external rotation possible. She can be flexed to 90 degrees without pain. Both feet are warm, pink and well perfused. She has no calf pain or tenderness. LABORATORY EVALUATION: White blood cell count is normal at 6.8. INR 1.48. X-rays and CT scan were reviewed and also reviewed with radiologist. I do not see any pelvic fracture evident. However, I do believe she has a nonunion of her left intertrochanteric hip fracture based on her CT scan. 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 PLAN: I would like the patient remain toe-touch weightbearing on the left lower extremity for a period of six weeks. I would also like to get her an Exogen bone stimulator to use to help promote healing of this nonunion and have her follow up in the office for recheck in two weeks and then again at six weeks from now. I would also like the patient to get home health to assist her with her activities of daily living and assist her with ambulation. If the fracture nonunion continues to be a problem and does not heal or resolve, we discussed that we could convert her to a total hip arthroplasty or hip hemiarthroplasty with removal of the nail, however, I am reticent to perform this as this would be a fairly significant operation with significant blood loss and risk to the patient. Mariusz Whitney DO 10/11/16 1707 Brief History 80yo F w/ CKD, HTN, afib on AC, amiodarone, hx of endometrial CA, Lt IT fx s/p fall, s/p ORIF 07/02/2016 p/w lt hip pain. Patient stated that since last time she was hospitalized for his fracture surgery, patient has received home physical therapy, participating very well. Patient was able to ambulating with walker. However, this morning patient finished her shower, home health care coordinator was helping her drying while she was standing, suddenly he was not able to stand with severe pain on her hip, so patient was about to fall, likely home health care coordinator was able to catch her. Patient denied any recent trauma, doing really well. Patient denied fever, chills, cough, sputum, diarrhea, nausea, vomiting, chest pain, palpitation, dizziness. In ED, VS IT113d, 81, RR20, afebrile, 98% on RA, femurs xray shows stable postsurgical changes on lt hip. pelvic xray shows Left suprapubic ramal fracture , therefore was called, recommended CT scan. During interview, pt denied any hip pain, able to move her toes, denied tingling numbness on the left leg. Hospital Course 80yo F w/ CKD, HTN, afib on AC, amiodarone, hx of endometrial CA, Lt IT fx s/p fall, s/p ORIF 07/02/2016 p/w lt hip pain, found to have atraumatic pelvic fx. acute, active #Lt hip pain, POA, secondary to pubic ramus fx, no hx of trauma, pt is on VitD3 , presumably related to osteoporosis -appreciate input, keep nonwt bearing, although unlikely require surgical intervention. -currently titrating pain medication -discharge to home with volunteer services and under care of family chronic, stable #HTN, continue HCTZ #hypothyroidism, continue LT4 home dose, #afib, rate controlled inr currently therapeutic dvt ppx:systemic AC, LMWH until INR >2 diet: cardiac Full Code Exam Test 10/10/16 12:19 10/13/16 05:45 White Blood Count 6.8th/mm3 (3.8-10.1) Red Blood Count 3.47mil/mm3 (3.90-5.20) Hemoglobin 10.9g/dL (12.0-15.6) Hematocrit 33.8% (35.0-46.0) Mean Corpuscular Volume 97.4fL (81-100) Mean Corpuscular Hemoglobin 31.4pg (27.0-35.0) Mean Corpuscular Hemoglobin Concent 32.2% (32.0-37.0) Red Cell Distribution Width 12.1% (12.3-15.4) Platelet Count 205bil/L (150-400) Neutrophils (%) (Auto) 79.0% (40-74) Lymphocytes (%) (Auto) 9.0% (14-46) Monocytes (%) (Auto) 9.7% (4-12) Eosinophils (%) (Auto) 2.1% (0-5) Basophils (%) (Auto) 0.1% (0-3) Sodium Level 141mEq/L (134-144) Potassium Level 4.6mEq/L (3.5-5.2) Chloride Level 103mEq/L (97-108) Carbon Dioxide Level 23mmol/L (18-29) Blood Urea Nitrogen 37mg/dL (8-27) Creatinine 1.84mg/dL (0.57-1.00) Estimat Glomerular Filtration Rate 38mL/min (>59) Glucose Level 96mg/dL (60-99) Calcium Level 8.9mg/dL (8.5-10.1) Total Bilirubin 0.5mg/dL (0.0-1.2) Aspartate Amino Transf (AST/SGOT) 17U/L (0-50) Alanine Aminotransferase (ALT/SGPT) 8U/L (0-32) Alkaline Phosphatase 105U/L (25-165) Total Creatine Kinase 86U/L (21-215) Total Protein 6.5g/dL (6.4-8.4) Albumin 3.7g/dL (3.4-5.0) Prothrombin Time 16.2sec (8.1-12.5) Prothromb Time International Ratio 1.50ratio Discharge Medications Discharge Medications Amiodarone (Amiodarone) 200 Mg Tablet 200 MG PO QAM (Reported) Ascorbic Acid (Vitamin C) 100 Mg Tablet Unknown Dose PO DAILY (Reported) Cholecalciferol (Vitamin D3) (Vitamin D3) 1,000 Unit Tab.chew 1,000 UNIT PO DAILY (Reported) Hydrochlorothiazide (Hydrochlorothiazide) 25 Mg Tablet 25 MG PO QAM (Reported) Levothyroxine (Levothyroxine) 75 Mcg Tablet 75 MCG PO DAILY (Reported) Warfarin Sodium (Warfarin Sodium) 1 Mg Tablet 1.5 MG PO ,Mon,,Sat,Philip ( Reported) Warfarin Sodium (Warfarin Sodium) 1 Mg Tablet 1 MG PO Mon,Mon (Reported) As needed Acetaminophen (Tylenol Arthritis) 650 Mg Tablet.er 650 MG PO HS PRN PRN For Pain (Reported) Hydrocodone-Acetaminophen 5-325 mg (Hydrocodone-Acetaminophen 5-325 mg) 1 Each Tablet 1-2 TABLET PO Q4H PRN PRN For Moderate Pain Prescribed by: LAYO THORNTON MD Durable Medical Equipment ([commode]) UNIT DAILY (DME) Prescribed by: LAYO THORNTON MD ([bone stimulator ]) AD DAILY (DME) Prescribed by: LAYO THORNTON MD Additional med instructions take medication as prescribed Followup Plan Discharge Diet: No restrictions Discharge Activity: No restrictions Patient Instructions Take medications as prescribed No weight bearing on the affected side Obtain bone stimulator Follow-up with PCP in: 1 week Layo Thornton MD Nov 01, 2016 14:15
== END 2016-10-13 15:00 | disposition home health service (06) ==
LOC: SED 11:13 → EDBD 11:13 → OSC 15:24
PROVIDERS: ADMIT Hospitalist; ATTEND Hospitalist
DX: S72.142K Displaced intertrochanteric fracture of left femur, subsequent encounter for closed fracture with nonunion (principal); I48.91 Unspecified atrial fibrillation; I10 Essential (primary) hypertension; Z79.01 Long term (current) use of anticoagulants
CPT/HCPCS: 36415; 71010; 72192; 73501; 73551; 80053; 82550; 85025; 85610; 93970; 94640; 94664; 94799; 97001; 97110; 97162; 97530; G8978; G8979; J2543; J7613